=== PATIENT | female | born 1980 | race Caucasian/White ===

== ENCOUNTER 2018-07-07 05:24 | Day surgery (SDC) | payer MEDICARE ==
[2018-07-06 13:26] LABS: HEMATOCRIT 43.2 % (36.0-48.0); HEMOGLOBIN 14.7 g/dL (12-16); MCH 27.9 pg (26.0-34.0); MCV 82.1 fL (80.0-100.0); MEAN PLATELET VOLUME 10.3 fL (7.4-10.4); RBC 5.26 10x6/uL (4.00-5.40); RDW 13.6 % (11.5-14.5); WBC 12.2 10x3/uL (4.8-10.8)
[~2018-07-07] VITALS: Ht 160 cm; Wt 90.7 kg
--- NOTE | ~2018-07-07 | OP ---
PATIENT NAME: EMA PARK MEDICAL RECORD: [id number] :80 LOCATION:[facility] ADMISSION DATE: SURGEON: JEREL HAMMER DPM DATE OF OPERATION: 07/07/2018 PREOPERATIVE DIAGNOSIS: Plantar fasciitis, right foot. POSTOPERATIVE DIAGNOSIS: Plantar fasciitis, right foot. PROCEDURE: Instep plantar fasciotomy, right foot. ANESTHESIA: Local with IV sedation utilizing lidocaine and Marcaine plain, 17 cc total on the surgical site. HEMOSTASIS: Esmarch right ankle. PREOPERATIVE DETAILS: The patient was taken to the operating room and put in the operating table in a supine position. This was followed by induction of general anesthesia and infiltration of local anesthetic. The right extremity was then prepped and draped in usual aseptic technique, followed by exsanguination with an Esmarch, wherein the Esmarch was fashioned around the ankle. A 15 blade was used to create a 2-cm linear incision over the plantar aspect of the right foot just anterior to the weightbearing surface of the heel. The incision was in a transverse fashion. The incision was deepened down through subcutaneous tissue visualizing the plantar fascia with the foot held in dorsiflexion. A cut was made through the medial band of the plantar fascia. This allowed the bowstringing of the fascia to be reduced. Wound was flushed. Deep tissue was reapproximated with 2-0 Vicryl, the subcutaneous tissue with 4-0 Rapide, and the skin was closed with 4-0 Rapide in a subcuticular technique, followed by Dermabond. Adaptic, 4 x 4, and conform were used to dress the wound, followed by Coban. The Esmarch was removed. The patient tolerated the procedure well and left the OR with vital signs stable and vascular status at preoperative levels. The patient was transported to recovery per anesthesia in stable condition. TRANSINT:[id number] Voice Confirmation ID: [id number] DOCUMENT ID: [id number] JEREL HAMMER DPM at 0750 CC: [id number] DICTATION DATE: 07/07/18 0832 KEEPER HEAD: 07/07/18 1149 [facility] 07/07/18 [place] [address]
[~2018-07-07 05:24] MED LIST: FEXOFENADINE H180 MG PO
[2018-07-07 06:26] VITALS: BP 138/96; Ht 160 cm; Wt 90.7 kg
== END 2018-07-07 10:00 | disposition home or self-care (01) ==
LOC: D.OPS 05:24 → D.PAN 07:00 → D.OPS 07:30 → D.PAN 07:30 → D.OPS 10:00
PROVIDERS: Anesthesiology
DX: M72.2 Plantar fascial fibromatosis (principal); Z01.812 Encounter for preprocedural laboratory examination